=== PATIENT | male | born 1980 | race Caucasian/White ===

== ENCOUNTER 2017-01-09 10:05 | Emergency (ER) | payer MEDICAID, OTHER ==
[~2017-01-09] VITALS: Wt 75.7 kg
--- NOTE | 2017-01-09 11:39 | ERD ---
ER Documentation Chief Complaint Chief Complaint RIGHT SHOULDER PAIN, ONSET 1 DAY, NO INJURY HPI This is a 36-year-old male who presents the emergency department today complaining of right shoulder pain that started yesterday. Patient states the pain only hurts when he takes a deep breath. Denies any trauma. 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 Denies any fevers or chills. States he smokes cigarettes. He has not taken any medication for the pain. ROS All systems reviewed and are negative except as per history of present illness. Medications Home Meds Active Scripts Naproxen* (Naprosyn*) 500 Mg Tablet, 500 MG PO BID Y for PAIN AND/OR INFLAMMATION, #30 TAB Prov:JUNIE BAKER PA-C 01/09/17 PMhx/Soc Medical and Surgical Hx: pt denies Medical Hx, pt denies Surgical Hx Hx Alcohol Use: Yes (occ) Hx Substance Use: No Hx Tobacco Use: Yes Smoking Status: Current every day smoker Physical Exam Vitals Vital Signs Date Time Temp Pulse Resp B/P Pulse Ox O2 Delivery O2 Flow Rate FiO2 01/09/17 10:19 98.3 78 17 126/81 97 Physical Exam Const: NAD Head: Atraumatic Eyes: Normal Conjunctiva ENT: Normal External Ears, Nose and Mouth. Neck: Full range of motion..~ No meningismus. Resp: Clear to auscultation bilaterally Cardio: Regular rate and rhythm, no murmurs Abd: Soft, non tender, non distended. Normal bowel sounds Skin: No petechiae or rashes Ext: Right shoulder and arm with full active range of motion. Mild tenderness palpation over posterior aspect of shoulder. Pulses 2+. Distal neurovascularly intact. Neur: Awake and alert Psych: Normal Mood and Affect Results 24 hrs DIAGNOSTIC IMAGING REPORT Patient: DICK SCHMIDT : 1980 Age: 36 Sex: M MR #: [id number] DOS: 01/09/17 0000 Ordering MD: JUNIE BAKER PA-C Location: [facility] Room/Bed: PROCEDURE: Chest x-ray CLINICAL INDICATION: Right-sided chest pain TECHNIQUE: Chest single view COMPARISON: None FINDINGS: The heart is normal in size. The pulmonary vessels are normal in caliber. The lungs are clear. The costophrenic angles are sharp. The visualized bony thorax is unremarkable. IMPRESSION: No acute cardiopulmonary disease. RPTAT: HH .Syl Lr MD, Date Time Electronically viewed and signed by .Sly Lr MD, MD on 01/09/2017 12:10 .W/ CC: JUNIE BAKER PA-C Procedures/MDM This a right handed 36-year-old male who presents emergency department today complaining of right shoulder pain that started yesterday. Patient indicated that the pain only happens when he takes a deep breath. He has not had any trauma patient indicated that he does smoke cigarettes therefore did obtain a chest x-ray given the location of the pain in the patient's complaint with taking a deep breath. She does have full active range of motion of his shoulder denies any pain with shoulder movement I do not feel he requires shoulder specific imaging at this time. Chest x-ray shows no acute cardiopulmonary disease. Lungs are clear. Low suspicion for pneumonia, PE, abscess, pleural effusion, pneumothorax Patient symptoms at this time is consistent with shoulder pain likely musculoskeletal strain versus sprain. Patient will be given a prescription for Naprosyn. Patient was counseled for greater than 3 minutes on smoking cessation. At this time the patient is stable for discharge and outpatient management. Patient should follow up with their PCP in the next 1-2 days. They may return to the emergency department sooner for any persistent or worsening of symptoms. Patient understood and agreed with the plan. Departure Diagnosis: Primary Impression: Shoulder pain Chronicity: acute Laterality: right Qualified Code: M25.511 - Acute pain of right shoulder Condition: Fair JUNIE BAKER PA-C Jan 09, 2017 11:39
--- NOTE | 2017-01-09 12:11 | RADRPT ---
PROCEDURE: Chest x-ray CLINICAL INDICATION: Right-sided chest pain TECHNIQUE: Chest single view COMPARISON: None FINDINGS: The heart is normal in size. The pulmonary vessels are normal in caliber. The lungs are clear. Th e costophrenic angles are sharp. The visualized bony thorax is unremarkable. IMPRESSION: No acute cardiopulmonary disease. RPTAT: HH .Sly Lr MD, Date Time Electronically viewed and signed by .Sly Lr MD, on 01/09/2017 12:10 .W/
[2017-01-09] MEDS ORDERED: NAPR-260 PO (12:40)
== END 2017-01-09 12:45 | disposition home or self-care (01) ==
LOC: EDBD 10:05 → FTE 10:05
DX: M25.511 Pain in right shoulder (principal); F17.210 Nicotine dependence, cigarettes, uncomplicated
CPT/HCPCS: 71010; Z7502